=== PATIENT | female | born 1945 | race Caucasian/White ===

== ENCOUNTER 2018-07-28 23:03 | Emergency (ER) | payer OTHER, MEDICARE ==
--- OUTSIDE RECORDS SUMMARY | 2018-07-28 23:06 | XMS REPORT | Continuity of Care Document ---
:1945 Author Organization Interface Problems Problem Status Onset Classification Date Comments Source Date Reported 9AM RESEARCH Active 08/13/20 PT/K44.9 16 [facility] K44.9/DIAPHRAGMAT Active 08/07/20 IC HERNIA WITHOUT 16 [facility] OBSTR GERD Active 07/10/20 14 [facility] 530.81/553.3/787. Active 12/07/19 20/18504 14 [facility] UNK Active 10/10/19 14 [facility] TYPE AND CROSS Active 09/10/19 14 [facility] Abdominal pain Active Problem 08/21/2016 [facility] Altered bowel Active Problem 08/21/2016 habits [facility] Anemia Active Problem 08/21/2016 [facility] Cholecystitis Resolved Problem 08/21/2016 [facility] Decrease in Active Problem 08/21/2016 appetite [facility] Diverticulosis of Active Problem 08/21/2016 colon [facility] Dysphagia Active Problem 08/21/2016 [facility] GERD - Active Problem 08/21/2016 Gastro-esophageal [facility] reflux disease Hiatal hernia Active Problem 08/21/2016 [facility] Hip joint pain Resolved Problem 08/21/2016 [facility] HTN - Resolved Problem 08/21/2016 Hypertension [facility] Multiple gastric Active Problem 08/21/2016 [place] erosions<sup>1</s erosions [facility] up> 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 [facility] Polyp of colon Resolved Problem 08/21/2016 [facility] RA - Rheumatoid Active Problem 08/21/2016 arthritis [facility] [place] Active Problem 07/20/2014 ulcerations [facility] small bowel AVM's Active Problem 07/20/2014 [facility] ESOPHAGEAL REFLUX Active [facility] CHR BLOOD LOSS Active ANEMIA [facility] DYSPHAGIA NOS Active [facility] Medications Medication Details Route Status Patient Ordering Order Source Instructions Provider Date Levofloxacin 500 mg, 100 mL, Inactive Route: IVPB, 2013 [facility] Drug form: INJ, Daily, Dosing Weight 67.273, kg, Start date: 12/12/13 11:00:00, Duration: 30 day, Stop date: 01/10/14 11:00:00Notes: (Same as:Levaquin) Paxil 10 mg, 1 tab, Inactive Route: PO, Drug 2013 [facility] form: TAB, Daily, Dosing Weight 76.364, kg, Start date: 12/12/13 9:00:00, Duration: 30 day, Stop date: 01/10/14 9:00:00Notes: (Same as: Paxil) Lisinopril 10 mg, 1 tab, Inactive Route: PO, Drug 2013 [facility] form: TAB, Daily, Dosing Weight 76.364, kg, Start date: 12/12/13 9:00:00, Duration: 30 day, Stop date: 01/10/14 9:00:00Notes: (Same as: Prinivil, Zestril) Tylenol 650 mg, 20.3 Inactive mL, Route: PO, 2013 [facility] Drug form: LIQ, Q6H, Dosing Weight 76.364, kg, PRN Pain, Start date: 12/12/13 6:16:00, Stop date: 01/11/14 6:15:00Notes: Max acetaminophen=4 000mg/day (4 gm/day). (Same as: Tylenol) chlorhexidine 15 ml, Route: No Longer gluconate 1.2 S&SPIT, Q12H, Active 2013 [facility] MG/ML Mouth[place] Drug form: LIQ, Start date: 12/11/13 21:00:00, Duration: 2 week, Stop date: 12/25/13 9:00:00Notes: (Same As: Peridex) heparin, 5,000 unit, 1 No Longer porcine mL, Route: Active 2013 [facility] SUB-Q, Drug form: INJ, Q12H, Dosing Weight 67.273, kg, Start date: 12/11/13 20:00:00, Duration: 30 day, Stop date: 01/10/14 9:00:00Notes: porcine heparin Dilaudid 0.5 mg, Route: Inactive IVP, ONCE, 2013 [facility] Dosing Weight 76.364, kg, Start date: 12/11/13 18:57:00, Stop date: 12/11/13 18:57:00 Plaquenil 200 mg, 1 tab, No Longer Route: PO, Drug Active 2013 [facility] form: TAB, BID, Dosing Weight 76.364, kg, Start date: 12/11/13 17:00:00, Duration: 30 day, Stop date: 01/10/14 9:00:00Notes: (Same as: Plaquenil) Carafate 1 gm, 10 mL, No Longer Route: PO, Drug Active 2013 [facility] form: SUSP, QID-Before Meals, Dosing Weight 76.364, kg, Start date: 12/11/13 16:30:00, Stop date: 01/10/14 11:30:00Notes: Enteral feeds may interfere with the absorption of this medication. Shake well. Take 1 hr before or 2 hrs after antacids, dairy pdt, minerals & meals. (Same As: Carafate) Protonix 40 mg, 1 pkt, No Longer Route: PO, Drug Active 2013 [facility] form: GRAN/REC, Before Dinner, Dosing Weight 76.364, kg, Start date: 12/11/13 16:30:00, Stop date: 01/09/14 16:30:00Notes: Same as: Protonix Mix in 5 mL apple juice or applesauce for oral & 10mL apple juice for NG tube Zofran 4 mg, 2 mL, No Longer Route: IV, Drug Active 2013 [facility] form: INJ, Q6H, Dosing Weight 76.364, kg, PRN Nausea, Start date: 12/11/13 16:26:00, Duration: 30 day, Stop date: 01/10/14 16:25:00Notes: (Same as: Zofran) atropine 0.5 mg, 5 mL, No Longer Route: IVP, Active 2013 [facility] Drug form: INJ, PRN, PRN Bradycardia, Start date: 12/11/13 15:50:00, Duration: 30 day, Stop date: 01/10/14 15:49:00 Albuterol 0.83 2.49 mg, 3 mL, No Longer MG/ML Inhalant Route: NEB, 2013 [facility] Solution Drug form: SOLN, RQ4H, Dosing Weight 67.273, kg, Start date: 12/11/13 15:00:00, Duration: 30 day, Stop date: 01/10/14 11:00:00Notes: SEE RT DOCUMENTATION (Same as: Proventil) Dilaudid 0.5 mg, Route: Inactive IVP, ONCE, 2013 [facility] Dosing Weight 76.364, kg, Start date: 12/11/13 14:12:00, Stop date: 12/11/13 14:12:00 Dilaudid 0.5 mg, Route: Inactive IVP, ONCE, 2013 [facility] Dosing Weight 76.364, kg, Start date: 12/11/13 14:06:00, Stop date: 12/11/13 14:06:00 Docusate 100 mg, 1 cap, No Longer Route: PO, Drug Active 2013 [facility] form: CAP, BID, Dosing Weight 67.273, kg, PRN Constipation, Start date: 12/11/13 13:36:00, Duration: 30 day, Stop date: 01/10/14 13:35:00Notes: (Same as: Colace) (Do Not Crush) Nitroglycerin 0.4 mg, 1 tab, No Longer Route: SL, Drug Active 2013 [facility] form: TAB, Q5Min, Dosing Weight 67.273, kg, PRN Chest Pain, Start date: 12/11/13 13:36:00, Duration: 30 day, Stop date: 01/10/14 13:35:00Notes: (Same as:Nitroquick, Nitrostat) "Do Not Crush" Sublingual tablet Sodium Chloride 1,000 mL, Rate: No Longer 0.154 MEQ/ML 75 ml/hr, 2013 [facility] Injectable Infuse over: Solution 13.3 hr, Route: IV, Dosing Weight 67.273 kg, Total Volume: 1,000, Start date: 12/11/13 13:36:00, Duration: 30 day, Stop date: 01/10/14 13:35:00 Morphine 4 mg, 2 mL, No Longer Route: IVP, Active 2013 [facility] Drug form: INJ, Q4H, Dosing Weight 67.273, kg, PRN Pain Score 1-5, Start date: 12/11/13 13:36:00, Duration: 30 day, Stop date: 01/10/14 13:35:00Notes: (Same as:MORPhine Sulfate) heparin, 5,000 unit, Inactive porcine Route: SUB-Q, 2013 ONCE, Dosing Weight 67.273, kg, Start date: 12/11/13 9:40:00, Stop date: 12/11/13 9:40:00 Levaquin 500 mg, 100 mL, Inactive Route: IVPB, 2013 Drug form: INJ, ONCE, Dosing Weight 67.273, kg, Start date: 12/11/13 9:40:00, Stop date: 12/11/13 9:40:00Notes: (Same as:Levaquin) Calcium 1,000 mL, Rate: Inactive Chloride 0.0014 25 ml/hr, 2013 MEQ/ML / Infuse over: 40 Potassium hr, Route: IV, Chloride 0.004 Dosing Weight MEQ/ML / Sodium 67.273 kg, Chloride 0.103 Total Volume: MEQ/ML / Sodium 1,000, Start Lactate 0.028 date: 12/11/13 MEQ/ML 9:23:00, Injectable Duration: 30 Solution day, Stop date: 01/10/14 9:22:00 Ibuprofen PO, PRN, 0 No Longer Refill(s) Active 2013 Ascorbic Acid / 1 tab, PO, Active Biotin / Folic Daily, 0 2013 Acid / Niacin / Refill(s) pantothenate / pyridoxine / Riboflavin / Thiamine / Vitamin B 12 pantoprazole 40 40 mg=1 tab, Active MG Enteric PO, Daily, # 30 2013 Coated Tablet tab, 0 [Protonix] Refill(s) Sucralfate 1000 1 gm=1 tab, PO, Active MG Oral Tablet QID-Before 2013 [Carafate] Meals, # 120 tab, 0 Refill(s) Allergies, Adverse Reactions, Alerts Substance Category Reaction Severity Reaction Status Date Comments Source type Reported codeine Assertion Allergy to Drug Active sulfonamides allergy [facility] (disorder) sulfa Assertion Drug Active drugs allergy [facility] Immunizations Immunization Date Given Site Status Last Updated Comments Source Results Order Name Results Value Reference Date Interpretation Comments Source Range Barium Barium Addendum: Most recent hernia repair, July 2015. 08/18 - Swallow w Swallow w - [facility] Esophagus Esophagus Barium Swallow w Esophagus Function DX Function Function DX DX Read by: Jesus Zavala MD Dictated Date/time: 08/18/16 16:46 CLINICAL HISTORY: K44.9 Diaphragmatic hernia without obstruction or gangrene. Status post hernia repair, December 2013 Electronically Signed by : Jesus Zavala MD 08/18/16 16:47 FINAL REPORT - - 0.8 minutes fluoro time. Read by: Jesus Zavala MD Dictated Date/time: 08/18/16 16:35 COMPARISON: 07/18/2014 Electronically Signed by: Jesus Zavala MD 08/18/16 16:40 FINAL REPORT TECHNIQUE: Thin barium was administered with the patient in the upright position. AP and oblique views of the esophagus, GE junction and stomach were subsequently performed. FINDINGS: There is no evidence for residual or recurrent hiatal hernia. There is mild narrowing at the GE junction consistent with patient's history of fundoplication. There is no significant delay in passage of the administered barium from the esophagus to the stomach. No extraluminal leakage of contrast is visualized. IMPRESSION: Negative study. No fluoroscopic evidence to suggest residual/recurrent hernia. No significant delay in clearance of barium from the esophagus to the stomach. [id number] Barium Barium Barium Swallow/Video esophagram: 07/18 - Swallow w Swallow - [facility] Esophagus Esophagus Function Function DX DX CLINICAL HX: Status post repair of large paraesophageal hernia December 2013 Read by: Jesus Zavala MD Dictated Date/time: 07/18/14 11:17 Electronically Signed by: Jesus Zavala MD 07/18/14 11:26 FINAL REPORT TECHNIQUE: Thin barium was utilized for prone and LPO images. Thick barium was utilized for upright imaging of the esophagus and pharynx. Hamburger meat with barium paste was given to evaluate motility with solids. FINDINGS: There is no delay in passage of bolus from the pharynx into the esophagus. The cricopharyngeus relaxes normally. There is no evidence for a Zenker's diverticulum or pharyngeal web. Prone and LPO images of the esophagus reveal no significant dysmotility. Small paraesophageal hernia is noted posteriorly at the GE junction approximately 2 cm in size. Upright images with thick barium reveal no significant dysmotility. No mass lesions, stricture, or any significant mucosal abnormality of the esophagus is noted. Subsequently 2 separate swallows of a small piece of hamburger meat and barium were fluoroscopically followed through the length of esophagus. There is mild delay in clearance of solids from the esophag us. The patient is able to clear the residual solids from the esophagus following ingestion of additional water/thin barium Overhead image performed at the conclusion the procedure reveals the administered barium to remain in the stomach. Stomach is noted to be mildly distended. IMPRESSION: Small paraesophageal hernia is noted posteriorly at the GE junction. No significant dysmotility with regard to liquids. Minimal to mild delay in clearance of solids from the esophagus. Mild distention of stomach with no passage of the administered barium from the stomach into the proximal small bowel on the overhead image performed at the conclusion of the procedure. Correlate clinica lly for signs of gastroparesis. Further evaluation may be obtained with gastric emptying study as clinically indicated. Fluoroscopy Time: 3.1 minutes SL:13 CHEM PANEL eGFR 65 12/12 1Result Comment: The eGFR is calculated using the CKD-EPI formula. In most young, healthy individuals the eGFR will be >90 mL/ min/1.73m2. The eGFR declines with age. An eGFR of 60-89 may be normal in mL/min/1.7 /2013 some populations, particularly the elderly, for whom the CKD-EPI formula has not been extensively validated. Use of the eGFR is not recommended in the following populations: [facility] 3m2 Individuals with unstable creatinine concentrations, including patients and those with serious co-morbid conditions. Patients with extremes in muscle mass or diet. The data above are obtained from the National Kidney Disease Education Program (NKDEP) which additionally recommends that when the eGFR is used in patients with extremes of body mass index for purposes of drug dosing, the eGFR should be multiplied by the estimated BMI. CHEM PANEL Globulin 2.5 g/dL 2.0 - 4.0 12/12 [facility] CHEM PANEL A/G Ratio 1.1 0.7 - 1.6 12/12 [facility] CHEM PANEL AST 227 unit/L 0 - 37 12/12 [facility] CHEM PANEL B/C Ratio 16 6 - 25 12/12 [facility] CHEM PANEL AGAP 10.3 meq/L 10.0 - 12/12 20.0 [facility] CHEM PANEL Albumin Lvl 2.8 g/dL 3.5 - 5.0 12/12 [facility] CHEM PANEL Chloride Lvl 110 meq/L 95 - 109 12/12 [facility] CHEM PANEL Glucose Lvl 112 mg/dL 70 - 99 12/12 4Interpretive Data: Adult reference range values reflect the clinical guidelines of the [place] [employer]. [facility] CHEM PANEL Alk Phos 46 unit/L 39 - 136 12/12 [facility] CHEM PANEL Creatinine 0.9 mg/dL 0.5 - 1.4 12/12 [facility] CHEM PANEL BUN 14 mg/dL 7 - 22 12/12 [facility] CHEM PANEL Total 5.3 g/dL 6.4 - 8.4 12/12 [facility] CHEM PANEL Potassium 4.3 meq/L 3.5 - 5.1 12/12 [facility] CHEM PANEL Sodium Lvl 141 meq/L 135 - 145 12/12 [facility] CHEM PANEL Calcium Lvl 7.5 mg/dL 8.5 - 10.5 12/12 [facility] CHEM PANEL CO2 25 meq/L 24 - 32 12/12 [facility] CHEM PANEL Bili Total 0.3 mg/dL 0.2 - 1.3 12/12 [facility] CHEM PANEL ALT 220 unit/L 0 - 65 12/12 [facility] HEMATOLOGY Anisocyte 1+ None Seen 12/12 [facility] *ABN* (12/12/13 4:00 AM) HEMATOLOGY Basophils # 0.0 K/CMM 0.0 - 0.2 12/12 [facility] HEMATOLOGY Segs-Bands # 10.6 K/CMM 1.5 - 8.1 12/12 [facility] HEMATOLOGY Basophils 0.2 % 0.0 - 1.0 12/12 [facility] HEMATOLOGY Lymphocytes 2.3 K/CMM 1.0 - 5.5 12/12 [facility] HEMATOLOGY Eosinophils 0.0 K/CMM 0.0 - 0.5 12/12 [facility] HEMATOLOGY Monocytes # 0.8 K/CMM 0.0 - 0.8 12/12 [facility] HEMATOLOGY Segs 77.0 % 45.0 - 12/12 75.0 [facility] HEMATOLOGY Monocytes 6.1 % 2.0 - 12.0 12/12 [facility] HEMATOLOGY Lymphocytes 16.7 % 20.0 - 12/12 40.0 /2013 [facility] HEMATOLOGY Eosinophils 0.0 % 0.0 - 4.0 12/12 [facility] Platelet 230 K/CMM 133 - 450 12/12 [facility] MPV 9.5 fL 7.4 - 10.4 12/12 [facility] MCV 81.9 fL 81.0 - 12/12 99.0 /2013 [facility] MCH 27.3 pg 27.0 - 12/12 31.0 /2013 [facility] MCHC 33.4 g/dL 32.0 - 12/12 36.0 /2013 [facility] RDW 23.0 % 11.5 - 12/12 14.5 /2013 [facility] WBC 13.8 K/CMM 3.7 - 10.4 12/12 [facility] RBC 3.63 M/CMM 4.20 - 12/12 5.40 /2013 [facility] Hgb 9.9 g/dL 12.0 - 12/12 16.0 [facility] Hct 29.7 % 36.0 - 12/12 48.0 /2013 [facility] Esophagus Esophagus Ba Video esophagram: 12/12 - Ba Swallow Swallow - [facility] with Esophagus Esophagus Func Fun CLINICAL HISTORY: Status post hernia repair, evaluate for leaks/ perforation Read by: Jesus Zavala Dictated Date/time: 12/12/13 09:43 Electronically Signed by: Jesus Zavala MD 12/12/13 09:55 FINAL REPORT COMPARISON: 12/08/2013 TECHNIQUE: Fluoroscopic and video images of the esophagus were performed following administration of single contrast barium with the patient in the upright position. FINDINGS: The patient tolerated single contrast barium without difficulty. There is no significant delay in passage of the bolus from the esophagus into the stomach. The stomach is noted to be infradiap hragmatic consistent with recent hernia repair. There is no leakage of contrast outside the lumen of the esophagus or proximal stomach to suggest perforation. There is mild distention of the stomach with air-fluid level noted on the upright study. IMPRESSION: Negative postop Video esophagram. Interval resolution of type III hernia. No fluoroscopic evidence for leaks or obstruction. Fluoroscopy Time: 0.6 minutes SL:13 Chest Chest 1view Chest one view. 12/12 - /2013 - [facility] COMPARISON: 12/11/2013. Read by: Jesus Zavala Dictated Date/time: 12/12/13 07:29 Electronically Signed by: Jesus Zavala MD 12/12/13 07:31 FINAL REPORT FINDINGS: Limited AP portable study. Bibasilar atelectasis has mildly decreased in the interim. There is persistent mild scarring at the lung bases. There is blunting of the left costophrenic sulcus, likely secondary to small amount of pleural fluid. Cardiac silhouette size is within normal limits. No significant bony abnormality is evident. Various EKG leads and wires project over the patient's chest. SL:13 BLOOD BANK ABO/Rh O POS 12/11 RESULTS /2013 [facility] BLOOD BANK Antibody Negative 12/11 RESULTS Scrn [facility] (12/11/13 2:07 PM) CHEM PANEL eGFR 75 12/11 2Result Comment: The eGFR is calculated using the CKD-EPI formula. In most young, healthy individuals the eGFR will be >90 mL/ min/1.73m2. The eGFR declines with age. An eGFR of 60-89 may be normal in mL/min/1. some populations, particularly the elderly, for whom the CKD-EPI formula has not been extensively validated. Use of the eGFR is not recommended in the following populations: [facility] 3m2 Individuals with unstable creatinine concentrations, including patients and those with serious co-morbid conditions. Patients with extremes in muscle mass or diet. The data above are obtained from the National Kidney Disease Education Program (NKDEP) which additionally recommends that when the eGFR is used in patients with extremes of body mass index for purposes of drug dosing, the eGFR should be multiplied by the estimated BMI. CHEM PANEL Chloride Lvl 110 meq/L 95 - 109 12/11 [facility] CHEM PANEL Potassium 4.0 meq/L 3.5 - 5.1 12/11 Lvl [facility] CHEM PANEL Sodium Lvl 139 meq/L 135 - 145 12/11 [facility] CHEM PANEL Bili Total 0.2 mg/dL 0.2 - 1.3 12/11 [facility] CHEM PANEL Calcium Lvl 7.5 mg/dL 8.5 - 10.5 12/11 [facility] CHEM PANEL CO2 20 meq/L 24 - 32 12/11 [facility] CHEM PANEL AST 130 unit/L 0 - 37 12/11 [facility] CHEM PANEL Total 5.4 g/dL 6.4 - 8.4 12/11 [facility] CHEM PANEL Albumin Lvl 2.8 g/dL 3.5 - 5.0 12/11 [facility] CHEM PANEL ALT 117 unit/L 0 - 65 12/11 [facility] CHEM PANEL BUN 15 mg/dL 7 - 22 12/11 [facility] CHEM PANEL Alk Phos 50 unit/L 39 - 136 12/11 [facility] CHEM PANEL Creatinine 0.8 mg/dL 0.5 - 1.4 12/11 Lvl [facility] CHEM PANEL Glucose Lvl 178 mg/dL 70 - 99 12/11 5Interpretive Data: Adult reference range values reflect the clinical guidelines of the [place] [employer]. [facility] CHEM PANEL Globulin 2.6 g/dL 2.0 - 4.0 12/11 [facility] CHEM PANEL A/G Ratio 1.1 0.7 - 1.6 12/11 [facility] CHEM PANEL B/C Ratio 19 6 - 25 12/11 [facility] CHEM PANEL AGAP 13.0 meq/L 10.0 - 12/11 20.0 [facility] HEMATOLOGY Hct 30.7 % 36.0 - 12/11 48.0 [facility] HEMATOLOGY Hgb 10.0 g/dL 12.0 - 12/11 16.0 [facility] BLOOD BANK RBC product Product available 12/11 [facility] (12/11/13 1:43 PM) Chest Chest 1view Examination: Chest x-ray, single view 12/11 - - [facility] History: Shallow breathing Read by: Joseph Billingsley Dictated Date/time: 12/11/13 14:48 Electronically Signed by: Joseph Billingsley MD 12/11/13 14:50 FINAL REPORT Comparison: 12/08/2013 Findings: The cardiac silhouette is normal in size. Mild bibasilar scarring versus linear atelectasis is seen. There is no pleural effusion or pneumothorax. The osseous structures are without focal abnormality. IMPRESSION: No acute cardiopulmonary disease. SL: 12 BLOOD BANK RBC product Product available 12/11 [facility] (12/11/13 6:00 AM) BLOOD BANK Antibody Negative 12/08 RESULTS Scrn /2013 [facility] (12/08/13 11:00 AM) BLOOD BANK ABO/Rh O POS 12/08 RESULTS [facility] CHEM PANEL eGFR 65 12/08 3Result Comment: The eGFR is calculated using the CKD-EPI formula. In most young, healthy individuals the eGFR will be >90 mL/ min/1.73m2. The eGFR declines with age. An eGFR of 60-89 may be normal in mL/min/1. some populations, particularly the elderly, for whom the CKD-EPI formula has not been extensively validated. Use of the eGFR is not recommended in the following populations: [facility] 3m2 Individuals with unstable creatinine concentrations, including patients and those with serious co-morbid conditions. Patients with extremes in muscle mass or diet. The data above are obtained from the National Kidney Disease Education Program (NKDEP) which additionally recommends that when the eGFR is used in patients with extremes of body mass index for purposes of drug dosing, the eGFR should be multiplied by the estimated BMI. CHEM PANEL Total 6.8 g/dL 6.4 - 8.4 12/08 [facility] CHEM PANEL Bili Total 0.5 mg/dL 0.2 - 1.3 12/08 [facility] CHEM PANEL AST 19 unit/L 0 - 37 12/08 [facility] CHEM PANEL Chloride Lvl 104 meq/L 95 - 109 12/08 [facility] CHEM PANEL CO2 26 meq/L 24 - 32 12/08 [facility] CHEM PANEL Calcium Lvl 8.5 mg/dL 8.5 - 10.5 12/08 [facility] CHEM PANEL Alk Phos 64 unit/L 39 - 136 12/08 [facility] CHEM PANEL Glucose Lvl 85 mg/dL 70 - 99 12/08 6Interpretive Data: Adult reference range values reflect the clinical guidelines of the [place] [employer]. [facility] CHEM PANEL BUN 21 mg/dL 7 - 22 12/08 [facility] CHEM PANEL Albumin Lvl 3.8 g/dL 3.5 - 5.0 12/08 [facility] CHEM PANEL ALT 22 unit/L 0 - 65 12/08 [facility] CHEM PANEL Sodium Lvl 136 meq/L 135 - 145 12/08 [facility] CHEM PANEL Creatinine 0.9 mg/dL 0.5 - 1.4 12/08 Lvl [facility] CHEM PANEL Potassium 4.1 meq/L 3.5 - 5.1 12/08 Lv [facility] CHEM PANEL AGAP 10.1 meq/L 10.0 - 12/08 20.0 [facility] CHEM PANEL Globulin 3.0 g/dL 2.0 - 4.0 12/08 [facility] CHEM PANEL B/C Ratio 23 6 - 25 12/08 [facility] CHEM PANEL A/G Ratio 1.3 0.7 - 1.6 12/08 [facility] HEMATOLOGY MCH 26.6 pg 27.0 - 12/08 31.0 [facility] HEMATOLOGY Hgb 11.9 g/dL 12.0 - 12/08 16.0 [facility] Hct 36.6 % 36.0 - 12/08 48.0 [facility] MCV 82.2 fL 81.0 - 12/08 99.0 /2013 [facility] Platelet 260 K/CMM 133 - 450 12/08 [facility] HEMATOLOGY RDW 23.4 % 11.5 - 12/08 14.5 [facility] MPV 9.9 fL 7.4 - 10.4 12/08 [facility] MCHC 32.4 g/dL 32.0 - 12/08 36.0 /2013 [facility] RBC 4.45 M/CMM 4.20 - 12/08 5.40 /2013 [facility] WBC 9.5 K/CMM 3.7 - 10.4 12/08 [facility] HEMATOLOGY INR 0.92 0.85 - 12/08 7Interpretive Data: RECOMMENDED RANGES FOR PROTIME INR: 1. 2.0-3.0 for most medical and surgical thromboembolic states. [facility] 2.5-3.5 for artificial heart valves and recurrent embolism. INR SHOULD BE USED ONLY FOR PATIENTS ON STABLE ANTICOAGULANT THERAPY. HEMATOLOGY PTT 24.5 s 22.9 - 12/08 8Interpretive 35.8 Data: Heparin [facility] Therapeutic Range: 57 - 92 Seconds HEMATOLOGY PT 12.3 s 12.0 - 12/08 14.7 [facility] HEMATOLOGY Basophils 0.5 % 0.0 - 1.0 12/08 [facility] HEMATOLOGY Eosinophils 0.8 % 0.0 - 4.0 12/08 [facility] HEMATOLOGY Monocytes 4.9 % 2.0 - 12.0 12/08 [facility] HEMATOLOGY Segs-Bands # 5.0 K/CMM 1.5 - 8.1 12/08 [facility] HEMATOLOGY Lymphocytes 3.9 K/CMM 1.0 - 5.5 12/08 # /2013 [facility] HEMATOLOGY Basophils # 0.0 K/CMM 0.0 - 0.2 12/08 [facility] HEMATOLOGY Eosinophils 0.1 K/CMM 0.0 - 0.5 12/08 # [facility] HEMATOLOGY Monocytes # 0.5 K/CMM 0.0 - 0.8 12/08 [facility] HEMATOLOGY Anisocyte 1+ None Seen 12/08 [facility] *ABN* (12/08/13 11:00 AM) HEMATOLOGY Lymphocytes 41.1 % 20.0 - 12/08 40.0 /2013 [facility] HEMATOLOGY Segs 52.7 % 45.0 - 12/08 75.0 [facility] URINE AND UA Sq Epi None Seen 12/08 STOOL [facility] URINE AND UA <=1.0 0.1 - 1.0 12/08 STOOL Urobilinogen mg/dL /2013 [facility] URINE AND UA WBC 5 /HPF 0 - 5 12/08 [facility] URINE AND UA Leuk Est Trace Negative 12/08 [facility] *ABN* (12/08/13 10:30 AM) URINE AND UA Bacteria Occasional None Seen 12/08 [facility] RBC null 0 - 2 12/08 [facility] URINE [facility]A Glucose Negative Negative 12/08 [facility] mg/dL mg/dL [facility] URINE AND UA Ketones Negative Negative 12/08 [facility] mg/dL mg/dL [facility] URINE AND UA Blood Negative Negative 12/08 [facility] (12/08/13 10:30 AM) URINE AND UA Nitrite Positive Negative 12/08 [facility] *ABN* (12/08/13 10:30 AM) URINE AND UA Bili Negative Negative 12/08 [facility] *NA* (12/08/13 10:30 AM) URINE AND UA Spec Grav 1.013 <=1.030 12/08 [facility] URINE AND UA Turbidity Slight Clear 12/08 [facility] /2014 [facility] *ABN* (12/08/13 10:30 AM) URINE AND UA Color Yellow Yellow 12/08 *NA* (12/08/13 10:30 AM) URINE AND UA pH 5.0 5.0 - 8.0 12/08 [facility] URINE AND UA Protein Negative Negative 12/08 [facility] mg/dL mg/dL Esophagus Esophagus Ba HISTORY: Hiatal hernia, dysphasia. 12/08 - Ba Swallow Swallow - with Esophagus Esophagus Func Func Read by: Anuj Chin Dictated Date/time: 12/08/13 12:58 Electronically Signed by: Anuj Chin MD 12/08/13 13:05 FINAL REPORT Barium Swallow/Video esophagram: Technique: Prone and supine JAPANESE imaging was initially performed with single -contrast barium. Fluoroscopic spot and video images were obtained. Upright air- contrast study was performed followed by additi onal images of the pharyngoesophageal junction. Hamburger meat with barium was given to evaluate motility with solids. FINDINGS: There is no delay in passage of bolus from the pharynx into the esophagus. The cricopharyngeus relaxes normally. There is no evidence for a Zenker's diverticulum. Prone and JAPANESE images of the esophagus demonstrate a large paraesophageal hiatal hernia which includes the gastric fundus. It is notably to the right of the gastroesophageal junction and distal esophagus. Upright double-contrast images reveal no significant dysmotility. No mass lesions, stricture, or any significant mucosal abnormality of the esophagus is otherwise noted. Subsequently 2 separate swallows of a small piece of hamburger meat and barium were fluoroscopically followed through the length of esophagus. There is no significant delay in passage of the solid bariu m bolus from the pharynx to the esophagus and subsequently into the stomach. Delayed image through the upper abdomen reveals prompt passage of barium from the stomach to the proximal small bowel. IMPRESSION: Large paraesophageal hiatal hernia. Fluoroscopy Time: Three minutes. SL:13 Chest 2 Chest 2 PA and lateral: There is a right retrocardiac hiatal hernia previously demonstrated on the esophagram of 10/20/2013. The cardiomediastinal silhouette, pulmonary vasculature and katiana are otherwise within 12/08 views views normal limits. There is mild atelectasis or consolidation in the anterior basilar segment of the right lower lobe. The lungs and pleural spaces are otherwise clear. There are no significant osseous abnormalities. 2013 [facility] Read by: Cricket Schmitz IMPRESSION: Dictated Date/time: 12/08/13 11:41 Electronically Signed by: Cricket Schmitz MD 12/08/13 11:44 FINAL REPORT Atelectasis or consolidation in the anterior basilar segment of the right lower lobe. There are no other acute radiographic abnormalities in the chest. SL:13 Vital Signs Vital Sign Value Date Comments Source Systolic (mm Hg) 136 12/12/2013 [facility] Diastolic (mm Hg) 77 12/12/2013 [facility] Heart Rate 86 12/12/2013 [facility] Respitory Rate 18 12/12/2013 [facility] Temperature Oral (F) 98.1 F 12/12/2013 [facility] Temperature Oral (F) 98.1 F 12/12/2013 [facility] Respitory Rate 18 12/12/2013 [facility] Heart Rate 77 12/12/2013 [facility] Systolic (mm Hg) 117 12/12/2013 [facility] Diastolic (mm Hg) 72 12/12/2013 [facility] Respitory Rate 23 12/12/2013 [facility] Heart Rate 94 12/12/2013 [facility] Temperature Oral (F) 99.0 F 12/12/2013 [facility] Diastolic (mm Hg) 71 12/12/2013 [facility] Systolic (mm Hg) 115 12/12/2013 [facility] BMI Calculated 29.82 12/11/2013 [facility] Height 160.02 cm 12/11/2013 [facility] Weight 76.364 12/11/2013 [facility] Weight 67.273 12/08/2013 [facility] BMI Calculated 27.13 12/08/2013 [facility] Height 157.48 cm 12/08/2013 [facility] Encounters Location Location Encounter Encounter Reason Attending ADM DC Status Source Details Type Number For Provider Date Date Visit [place] [id number] TYPE KUSHAL 10/10 Active [facility] AND INA [facility] Outpatient [id number] _MAPID: Gina 12/08 12/09 [facility] [id number] ENCNTR[facility] /2013 [facility] [id number] [facility] [address] [place] [address] Inpatient [id number] Jj Partida 12/11 12/[address] [facility] Outpatient [id number] [facility] 07/18 07/19 Jin Escobar /2013 [facility] Outpatient [id number] [facility] 08/18 08/19 Jin Escobar /2015 [facility] [id number] TRINITYK KUSHAL Active [facility] Procedures Procedure Code Date Perfomer Comments Source Hip [id number] Right [facility] replacement<sup>1</markham 4 p> Laparoscopic [id number] [facility] cholecystectomy 3 Bilateral tubal [id number] [facility] ligation Colonoscopy<sup>2</[place] 85167165 04/2006 [facility] p> 03/2003 Esophagogastroduodeno [id number] 04/2006 [facility] scopy<sup>3</sup> 10/2006 Ultrasound scan of [id number] [facility] gallbladder Wrist reconstruction [id number] [facility]
--- OUTSIDE RECORDS SUMMARY | 2018-07-28 23:06 | XMS REPORT | Summary of Care ---
:1945 Author Encounter Dates Location Diagnoses Discharge Disposition Providers 12/08/2013 - [facility] 12/08/[id number] Reason for Visit DYSPHAGIA/HIATIAL HERNIA/GERD Problem List Condition Effective Dates Status Health Status Informant Abdominal pain(Confirmed) Active Altered bowel habits(Confirmed) Active Anemia(Confirmed) Active Anselmo ulcerations(Confirmed) Active Cholecystitis(Confirmed) Resolved Decrease in appetite(Confirmed) Active Diverticulosis of colon(Confirmed) Active Dysphagia(Confirmed) Active GERD - Gastro-esophageal reflux Active disease(Confirmed) Hiatal hernia(Confirmed) Active Hip joint pain(Confirmed) Resolved HTN - Hypertension(Confirmed) Resolved Multiple gastric Active erosions(Confirmed)1 Multiple gastric ulcers(Confirmed) Active Polyp of colon(Confirmed) Resolved RA - Rheumatoid arthritis(Confirmed) Active small bowel AVM's(Confirmed) Active 1Cameron erosions Allergies, Adverse Reactions, Alerts Substance Reaction Severity Status codeine Allergy to sulfa drugs Active sulfa drugs Active Medications No data available for this section Medications Administered During Your Visit No data available for this section Immunizations No data available for this section Social History Social History Type Response Substance Abuse 1 Alcohol 2 Smoking Status Use: Current every day smoker. Type: Cigarettes. 4 per day. Tobacco smoke exposure: Lives with someone who smokes. Did the Patient Smoke Cigarettes Anytime During the Last 365 Days? Yes. Cessation Counseling Provided? No. [id number]
--- OUTSIDE RECORDS SUMMARY | 2018-07-28 23:07 | XMS REPORT | Summary of Care ---
:1945 Author Organization [facility] Address [address] [place], [place] [address]- Encounter [facility] Radhantr_regan(FIN) [id number] Date(s): 08/18/16 - 08/18/16 [facility] [address] [place] [address]- Discharge Disposition: Home or Self Care Attending Physician: Gina Escobar MD Vital Signs No data available for this section Problem List Condition Effective Dates Status Health Status Informant Abdominal pain(Confirmed) Active Altered bowel habits(Confirmed) Active Anemia(Confirmed) Active Cholecystitis(Confirmed) Resolved Decrease in appetite(Confirmed) Active Diverticulosis of colon(Confirmed) Active Dysphagia(Confirmed) Active GERD - Gastro-esophageal reflux Active disease(Confirmed) Hiatal hernia(Confirmed) Active Hip joint pain(Confirmed) Resolved HTN - Hypertension(Confirmed) Resolved Multiple gastric Active erosions(Confirmed)1 Multiple gastric ulcers(Confirmed) Active Polyp of colon(Confirmed) Resolved RA - Rheumatoid arthritis(Confirmed) Active 1Cameron erosions Allergies, Adverse Reactions, Alerts Substance Reaction Severity Status codeine Allergy to sulfa drugs Active sulfa drugs Active Medications No data available for this section Results No data available for this section Immunizations No data available for this section Procedures Procedure Date Related Diagnosis Body Site Hip replacement1 2003 Laparoscopic cholecystectomy 04/09/03 Bilateral tubal ligation Colonoscopy2 Esophagogastroduodenoscopy3 Ultrasound scan of gallbladder Wrist reconstruction [id number] Social History Social History Type Response Substance Abuse 1 Alcohol 2 Smoking Status Current every day smoker; Type: Cigarettes; Tobacco use per day : 4; Lives with someone who smokes; Cigarette Smoking Last 365 Days Yes; Reg Smoking Cessation Counseling No [id number] Assessment and Plan No data available for this section
--- OUTSIDE RECORDS SUMMARY | 2018-07-28 23:07 | XMS REPORT | Summary of Care ---
:1945 Author Encounter HQ Lorrie_regan(LUI) [id number] Date(s): 12/11/13 - 12/12/13 [facility] [address] Discharge Disposition: Home Physician Attending: Jj Partida Physician Admitting: Jj Partida Physician_Referring: Gina Escobar Reason for Visit 530.81/553.3/787.20/13459 Vital Signs Most recent to oldest [Reference 1 2 3 Range]: Height 160.02 cm 157.48 cm (12/11/13 3:33 PM) (12/08/13 9:50 AM) Temperature Oral [96.4-99.1 DegF] 98.1 DegF 98.1 DegF 99.0 DegF (12/12/13 12:01 PM) (12/12/13 7:41 AM) (12/12/13 4:00 AM) Systolic Blood Pressure [90-140 136 mmHg 117 mmHg 115 mmHg mmHg] (12/12/13 12:01 PM) (12/12/13 7:41 AM) (12/12/13 4:00 AM) Diastolic Blood Pressure [60-90 77 mmHg 72 mmHg 71 mmHg mmHg] (12/12/13 12:01 PM) (12/12/13 7:41 AM) (12/12/13 4:00 AM) Respiratory Rate [14-20 BRMIN] 18 BRMIN 18 BRMIN 23 BRMIN (12/12/13 12:01 PM) (12/12/13 7:41 AM) *HI* (12/12/13 7:20 AM) Peripheral Pulse Rate [60-100 86 bpm 77 bpm 94 bpm bpm] (12/12/13 12:01 PM) (12/12/13 7:41 AM) (12/12/13 4:00 AM) Weight 76.364 kg 67.273 kg (12/11/13 3:33 PM) (12/08/13 9:50 AM) Body Mass Index 29.82 m2 27.13 m2 (12/11/13 3:33 PM) (12/08/13 9:50 AM) Problem List Condition Effective Dates Status Health [...] sulfa drugs Active sulfa drugs Active Medications albuterol 0.083% inhalation solution 2.49 mg, 3 mL, Route: NEB, Drug form: SOLN, RQ4H, Dosing Weight 67.273, kg, Start date: 12/11/13 15:00:00, Duration: 30 day, Stop date: 01/10/14 11:00:00 Notes: SEE RT DOCUMENTATION (Same as: Carey) Start Date: 12/11/13 Stop Date: 12/12/13 Status: Discontinuedatropine 0.5 mg, 5 mL, Route: IVP, Drug form: INJ, PRN, PRN Bradycardia, Start date: 03/19 15:50:00, Duration: 30 day, Stop date: 01/10/14 15:49:00 Start Date: 12/11/13 Stop Date: 12/12/13 Status: DiscontinuedCarafate 1 gm, 10 mL, Route: PO, Drug form: SUSP, QID-Before Meals, Dosing Weight 76.364 , kg, Start date: 12/11/13 16:30:00, Stop date: 01/10/14 11:30:00 Notes: Enteral feeds may interfere with the absorption of this medication. Shake well. Take 1 hr before or 2 hrs after antacids, dairy pdt, minerals & meals. (Same As: Carafate) Start Date: 12/11/13 Stop Date: 12/12/13 Status: DiscontinuedCarafate 1 g oral tablet 1 gm=1 tab, PO, QID-Before Meals, # 120 tab, 0 Refill(s) Start Date: 12/08/13 Status: Orderedchlorhexidine topical 0.12% liquid 15 ml, Route: S&SPIT, Q12H, Drug form: LIQ, Start date: 12/11/13 21:00:00, Duration: 2 week, Stop date: 12/25/13 9:00:00 Notes: (Same As: Peridex) Start Date: 12/11/13 Stop Date: 12/12/13 Status: DiscontinuedDilaudid 0.5 mg, Route: IVP, ONCE, Dosing Weight 76.364, kg, Start date: 12/11/13 14:06: 00, Stop date: 12/11/13 14:06:00 Start Date: 12/11/13 Stop Date: 12/11/13 Status: DiscontinuedDilaudid 0.5 mg, Route: IVP, ONCE, Dosing Weight 76.364, kg, Start date: 12/11/13 14:12: 00, Stop date: 12/11/13 14:12:00 Start Date: 12/11/13 Stop Date: 12/11/13 Status: DiscontinuedDilaudid 0.5 mg, Route: IVP, ONCE, Dosing Weight 76.364, kg, Start date: 12/11/13 18:57: 00, Stop date: 12/11/13 18:57:00 Start Date: 12/11/13 Stop Date: 12/11/13 Status: CompletedDilaudid 0.5 mg, Route: IVP, ONCE, Dosing Weight 76.364, kg, Start date: 12/11/13 18:57: 00, Stop date: 12/11/13 18:57:00 Start Date: 12/11/13 Stop Date: 12/11/13 Status: Completeddocusate 100 mg, 1 cap, Route: PO, Drug form: CAP, BID, Dosing Weight 67.273, kg, PRN Constipation, Start date: 12/11/13 13:36:00, Duration: 30 day, Stop date: 13:35:00 Notes: (Same as: Colace) (Do Not Crush) Start Date: 12/11/13 Stop Date: 12/12/13 Status: Discontinuedheparin 5,000 unit, 1 mL, Route: SUB-Q, Drug form: INJ, Q12H, Dosing Weight 67.273, kg, Start date: 12/12/1419:00:00, Duration: 30 day, Stop date: 01/10/14 9:00:00 Notes: porcine heparin Start Date: 12/11/13 Stop Date: 12/12/13 Status: Discontinuedheparin 5,000 unit, Route: SUB-Q, ONCE, Dosing Weight 67.273, kg, Start date: 12/11/13 9 :40:00, Stop date: 12/11/13 9:40:00 Start Date: 12/11/13 Stop Date: 12/11/13 Status: Completedibuprofen PO, PRN, 0 Refill(s) Start Date: 12/08/13 Stop Date: 12/12/13 Status: DiscontinuedLactated Ringers Injection IV 1000 mL 1,000 mL, Rate: 25 ml/hr, Infuse over: 40 hr, Route: IV, Dosing Weight 67.273 kg , Total Volume: 1,000, Start date: 12/11/13 9:23:00, Duration: 30 day, Stop date : 01/10/14 9:22:00 Start Date: 12/11/13 Stop Date: 12/11/13 Status: DiscontinuedLevaquin 500 mg, 100 mL, Route: IVPB, Drug form: INJ, ONCE, Dosing Weight 67.273, kg, Start date: 12/11/13 9:40:00, Stop date: 12/11/13 9:40:00 Notes: (Same as:Levaquin) Start Date: 12/11/13 Stop Date: 12/11/13 Status: Completedlevofloxacin 500 mg, 100 mL, Route: IVPB, Drug form: INJ, Daily, Dosing Weight 67.273, kg, Start date: 12/12/13 11:00:00, Duration: 30 day, Stop date: 01/10/14 11:00:00 Notes: (Same as:Levaquin) Start Date: 12/12/13 Stop Date: 12/12/13 Status: Discontinuedlisinopril 10 mg, 1 tab, Route: PO, Drug form: TAB, Daily, Dosing Weight 76.364, kg, Start date: 12/12/13 9:00:00, Duration: 30 day, Stop date: 01/10/14 9:00:00 Notes: (Same as: Prinivil, Zestril) Start Date: 12/12/13 Stop Date: 12/12/13 Status: Discontinuedmorphine Sulfate 4 mg, 2 mL, Route: IVP, Drug form: INJ, Q4H, Dosing Weight 67.273, kg, PRN Pain Score 1-5, Start date: 12/11/13 13:36:00, Duration: 30 day, Stop date: 01/10/14 13:35:00 Notes: (Same as:MORPhine Sulfate) Start Date: 12/11/13 Stop Date: 12/12/13 Status: Discontinuedmultivitamin 1 tab, PO, Daily, 0 Refill(s) Start Date: 12/08/13 Status: Orderednitroglycerin 0.4 mg, 1 tab, Route: SL, Drug form: TAB, Q5Min, Dosing Weight 67.273, kg, PRN Chest Pain, Start date: 12/11/13 13:36:00, Duration: 30 day, Stop date: 13:35:00 Notes: (Same as:Nitroquick, Nitrostat)"Do Not Crush" Sublingual tablet Start Date: 12/11/13 Stop Date: 12/12/13 Status: DiscontinuedPaxil 10 mg, 1 tab, Route: PO, Drug form: TAB, Daily, Dosing Weight 76.364, kg, Start date: 12/12/13 9:00:00, Duration: 30 day, Stop date: 01/10/14 9:00:00 Notes: (Same as: Paxil) Start Date: 12/12/13 Stop Date: 12/12/13 Status: DiscontinuedPlaquenil Sulfate 200 mg, 1 tab, Route: PO, Drug form: TAB, BID, Dosing Weight 76.364, kg, Start date: 12/11/13 17:00:00, Duration: 30 day, Stop date: 01/10/14 9:00:00 Notes: (Same as: Plaquenil) Start Date: 12/11/13 Stop Date: 12/12/13 Status: DiscontinuedProtonix 40 mg, 1 pkt, Route: PO, Drug form: GRAN/REC, Before Dinner, Dosing Weight 76.364, kg, Start date: 12/11/13 16:30:00, Stop date: 01/09/14 16:30:00 Notes: Same as: Protonix Mix in 5 mL apple juice or applesauce for oral & 10mL apple juice for NG tube Start Date: 12/11/13 Stop Date: 12/12/13 Status: DiscontinuedProtonix 40 mg oral enteric coated tablet 40 mg=1 tab, PO, Daily, # 30 tab, 0 Refill(s) Start Date: 12/08/13 Status: OrderedSodium Chloride 0.9% IV 1,000 mL 1,000 mL, Rate: 75 ml/hr, Infuse over: 13.3 hr, Route: IV, Dosing Weight 67.273 kg, Total Volume: 1,000, Start date: 12/11/13 13:36:00, Duration: 30 day, Stop date: 01/10/14 13:35:00 Start Date: 12/11/13 Stop Date: 12/12/13 Status: DiscontinuedTylenol 650 mg, 20.3 mL, Route: PO, Drug form: LIQ, Q6H, Dosing Weight 76.364, kg, PRN Pain, Start date: 12/12/13 6:16:00, Stop date: 01/11/14 6:15:00 Notes: Max lnjeekgshmcpl=8826fp/day (4 gm/day). (Same as: Tylenol) Start Date: 12/12/13 Stop Date: 12/12/13 Status: DiscontinuedZofran 4 mg, 2 mL, Route: IV, Drug form: INJ, Q6H, Dosing Weight 76.364, kg, PRN Nausea , Start date: 12/11/13 16:26:00, Duration: 30 day, Stop date: 01/10/14 16:25:00 Notes: (Same as: Zofran) Start Date: 12/11/13 Stop Date: 12/12/13 Status: Discontinued Results BLOOD BANK RESULTS Most recent to oldest [Reference Range]: 1 2 3 ABO/Rh O POS O POS *Unknown* *Unknown* (12/11/13 2:07 PM) (12/08/13 11:00 AM) Antibody Scrn Negative Negative (12/11/13 2:07 PM) (12/08/13 11:00 AM) RBC product Product available Product available (12/11/13 1:43 PM) (12/11/13 6:00 AM) ELECTROLYTES Most recent to oldest 1 2 3 [Reference Range]: Sodium Lvl [135-145 mEq/L] 141 mEq/L 139 mEq/L 136 mEq/L (12/12/13 4:00 AM) (12/11/13 2:04 PM) (12/08/13 11:00 AM) Potassium Lvl [3.5-5.1 mEq/L] 4.3 mEq/L 4.0 mEq/L 4.1 mEq/L (12/12/13 4:00 AM) (12/11/13 2:04 PM) (12/08/13 11:00 AM) Chloride Lvl [95-109 mEq/L] 110 mEq/L 110 mEq/L 104 mEq/L *HI* *HI* (12/08/13 11:00 AM) (12/12/13 4:00 AM) (12/11/13 2:04 PM) CO2 [24-32 mEq/L] 25 mEq/L 20 mEq/L 26 mEq/L (12/12/13 4:00 AM) *LOW* (12/08/13 11:00 AM) (12/11/13 2:04 PM) AGAP [10.0-20.0 mEq/L] 10.3 mEq/L 13.0 mEq/L 10.1 mEq/L (12/12/13 4:00 AM) (12/11/13 2:04 PM) (12/08/13 11:00 AM) CHEM PANEL Most recent to oldest 1 2 3 [Reference Range]: Creatinine Lvl [0.5-1.4 0.9 mg/dL 0.8 mg/dL 0.9 mg/dL mg/dL] (12/12/13 4:00 AM) (12/11/13 2:04 PM) (12/08/13 11:00 AM) eGFR 65 mL/min/1.73m2 1 75 mL/min/1.73m2 2 65 mL/min/1.73m2 3 *NA* *NA* *NA* (12/12/13 4:00 AM) (12/11/13 2:04 PM) (12/08/13 11:00 AM) BUN [7-22 mg/dL] 14 mg/dL 15 mg/dL 21 mg/dL (12/12/13 4:00 AM) (12/11/13 2:04 PM) (12/08/13 11:00 AM) B/C Ratio [6-25] 16 19 23 (12/12/13 4:00 AM) (12/11/13 2:04 PM) (12/08/13 11:00 AM) Glucose Lvl [70-99 mg/dL] 112 mg/dL 4 178 mg/dL 5 85 mg/dL 6 *HI* *HI* (12/08/13 11:00 AM) (12/12/13 4:00 AM) (12/11/13 2:04 PM) Total Protein [6.4-8.4 g/dL] 5.3 g/dL 5.4 g/dL 6.8 g/dL *LOW* *LOW* (12/08/13 11:00 AM) (12/12/13 4:00 AM) (12/11/13 2:04 PM) Albumin Lvl [3.5-5.0 g/dL] 2.8 g/dL 2.8 g/dL 3.8 g/dL *LOW* *LOW* (12/08/13 11:00 AM) (12/12/13 4:00 AM) (12/11/13 2:04 PM) Globulin [2.0-4.0 g/dL] 2.5 g/dL 2.6 g/dL 3.0 g/dL (12/12/13 4:00 AM) (12/11/13 2:04 PM) (12/08/13 11:00 AM) A/G Ratio [0.7-1.6] 1.1 1.1 1.3 (12/12/13 4:00 AM) (12/11/13 2:04 PM) (12/08/13 11:00 AM) Calcium Lvl [8.5-10.5 mg/dL] 7.5 mg/dL 7.5 mg/dL 8.5 mg/dL *LOW* *LOW* (12/08/13 11:00 AM) (12/12/13 4:00 AM) (12/11/13 2:04 PM) ALT [0-65 unit/L] 220 unit/L 117 unit/L 22 unit/L *HI* *HI* (12/08/13 11:00 AM) (12/12/13 4:00 AM) (12/11/13 2:04 PM) AST [0-37 unit/L] 227 unit/L 130 unit/L 19 unit/L *HI* *HI* (12/08/13 11:00 AM) (12/12/13 4:00 AM) (12/11/13 2:04 PM) Alk Phos [39-136 unit/L] 46 unit/L 50 unit/L 64 unit/L (12/12/13 4:00 AM) (12/11/13 2:04 PM) (12/08/13 11:00 AM) Bili Total [0.2-1.3 mg/dL] 0.3 mg/dL 0.2 mg/dL 0.5 mg/dL (12/12/13 4:00 AM) (12/11/13 2:04 PM) (12/08/13 11:00 AM) 1Result Comment: The eGFR is calculated using the CKD-EPI formula. In most young , healthy individualsthe eGFR will be >90 mL/min/1.73m2. The eGFR declines with age. An eGFR of 60-89 may be normal in some populations, particularly the elderly, for whom the CKD-EPI formula has not been extensively validated. Use of the eGFR is not recommended in the following populations: Individuals with unstable creatinine concentrations, including patients and those with serious co-morbid conditions. Patients with extremes in muscle mass or diet. The data above are obtained from the National Kid[employer] Disease Education Program ( NK[employer]) which additionally recommends that when the eGFR is used in patients with extremes of body mass index for purposesof drug dosing, the eGFR should be multiplied by the estimated BMI.2Result Comment: The eGFR is calculated using the CKD-EPI formula. In most young, healthy individualsthe eGFR will be >90 mL/ min/1.73m2. The eGFR declines with age. An eGFR of 60-89 may be normal in some populations, particularly the elderly, for whom the CKD-EPI formula has not been extensively validated. Use of the eGFR is not recommended in the following populations: Individuals with unstable creatinine concentrations, including patients and those with serious co-morbid conditions. Patients with extremes in muscle mass or diet. The data above are obtained from the National Kid[employer] Disease Education Program ( [employer]) which additionally recommends that when the eGFR is used in patients with extremes of body mass index for purposesof drug dosing, the eGFR should be multiplied by the estimated BMI.3Result Comment: The eGFR is calculated using the CKD-EPI formula. In most young, healthy individualsthe eGFR will be >90 mL/ min/1.73m2. The eGFR declines with age. An eGFR of 60-89 may be normal in some populations, particularly the elderly, for whom the CKD-EPI formula has not been extensively validated. Use of the eGFR is not recommended in the following populations: Individuals with unstable creatinine concentrations, including patients and those with serious co-morbid conditions. Patients with extremes in muscle mass or diet. The data above are obtained from the National Kid[employer] Disease Education Program ( NKDEP) which additionally recommends that when the eGFR is used in patients with extremes of body mass index for purposesof drug dosing, the eGFR should be multiplied by the estimated BMI.4Interpretive Data: Adult reference range values reflect the clinical guidelines of the [place] [employer].5Interpretive Data: Adult reference range values reflect the clinical guidelines of the [place] [employer].6Interpretive Data: Adult reference range values reflect the clinical guidelines of the [place] [employer].URINE AND STOOL Most recent to oldest [Reference Range]: 1 2 3 UA Turbidity [Clear] Slight *ABN* (12/08/13 10:30 AM) UA Color [Yellow] Yellow *NA* (12/08/13 10:30 AM) UA pH [5.0-8.0] 5.0 (12/08/13 10:30 AM) UA Spec Grav [<=1.030] 1.013 (12/08/13 10:30 AM) UA Glucose [Negative mg/dL] Negative mg/dL *NA* (12/08/13 10:30 AM) UA Blood [Negative] Negative (12/08/13 10:30 AM) UA Ketones [Negative mg/dL] Negative mg/dL *NA* (12/08/13 10:30 AM) UA Protein [Negative mg/dL] Negative mg/dL (12/08/13 10:30 AM) UA Urobilinogen [0.1-1.0 mg/dL] <=1.0 mg/dL *NA* (12/08/13 10:30 AM) UA Bili [Negative] Negative *NA* (12/08/13 10:30 AM) UA Leuk Est [Negative] Trace *ABN* (12/08/13 10:30 AM) UA Nitrite [Negative] Positive *ABN* (12/08/13 10:30 AM) UA WBC [0-5 /HPF] 5 /HPF (12/08/13 10:30 AM) UA RBC [0-2 /HPF] <1 /HPF (12/08/13 10:30 AM) UA Bacteria [None Seen /HPF] Occasional /HPF *NA* (12/08/13 10:30 AM) UA Sq Epi None Seen *NA* (12/08/13 10:30 AM) HEMATOLOGY Most recent to oldest 1 2 3 [Reference Range]: WBC [3.7-10.4 K/CMM] 13.8 K/CMM 9.5 K/CMM *HI* (12/08/13 11:00 AM) (12/12/13 4:00 AM) RBC [4.20-5.40 M/CMM] 3.63 M/CMM 4.45 M/CMM *LOW* (12/08/13 11:00 AM) (12/12/13 4:00 AM) Hgb [12.0-16.0 g/dL] 9.9 g/dL 10.0 g/dL 11.9 g/dL *LOW* *LOW* *LOW* (12/12/13 4:00 AM) (12/11/13 2:04 PM) (12/08/13 11:00 AM) Hct [36.0-48.0 %] 29.7 % 30.7 % 36.6 % *LOW* *LOW* (12/08/13 11:00 AM) (12/12/13 4:00 AM) (12/11/13 2:04 PM) MCV [81.0-99.0 fL] 81.9 fL 82.2 fL (12/12/13 4:00 AM) (12/08/13 11:00 AM) MCH [27.0-31.0 pg] 27.3 pg 26.6 pg (12/12/13 4:00 AM) *LOW* (12/08/13 11:00 AM) MCHC [32.0-36.0 g/dL] 33.4 g/dL 32.4 g/dL (12/12/13 4:00 AM) (12/08/13 11:00 AM) RDW [11.5-14.5 %] 23.0 % 23.4 % *HI* *HI* (12/12/13 4:00 AM) (12/08/13 11:00 AM) Platelet [133-450 K/CMM] 230 K/CMM 260 K/CMM (12/12/13 4:00 AM) (12/08/13 11:00 AM) MPV [7.4-10.4 fL] 9.5 fL 9.9 fL (12/12/13 4:00 AM) (12/08/13 11:00 AM) Segs [45.0-75.0 %] 77.0 % 52.7 % *HI* (12/08/13 11:00 AM) (12/12/13 4:00 AM) Lymphocytes [20.0-40.0 %] 16.7 % 41.1 % *LOW* *HI* (12/12/13 4:00 AM) (12/08/13 11:00 AM) Monocytes [2.0-12.0 %] 6.1 % 4.9 % (12/12/13 4:00 AM) (12/08/13 11:00 AM) Eosinophils [0.0-4.0 %] 0.0 % 0.8 % (12/12/13 4:00 AM) (12/08/13 11:00 AM) Basophils [0.0-1.0 %] 0.2 % 0.5 % (12/12/13 4:00 AM) (12/08/13 11:00 AM) Segs-Bands # [1.5-8.1 K/CMM] 10.6 K/CMM 5.0 K/CMM *HI* (12/08/13 11:00 AM) (12/12/13 4:00 AM) Lymphocytes # [1.0-5.5 K/CMM] 2.3 K/CMM 3.9 K/CMM (12/12/13 4:00 AM) (12/08/13 11:00 AM) Monocytes # [0.0-0.8 K/CMM] 0.8 K/CMM 0.5 K/CMM (12/12/13 4:00 AM) (12/08/13 11:00 AM) Eosinophils # [0.0-0.5 K/CMM] 0.0 K/CMM 0.1 K/CMM (12/12/13 4:00 AM) (12/08/13 11:00 AM) Basophils # [0.0-0.2 K/CMM] 0.0 K/CMM 0.0 K/CMM (12/12/13 4:00 AM) (12/08/13 11:00 AM) Anisocyte [None Seen] 1+ 1+ *ABN* *ABN* (12/12/13 4:00 AM) (12/08/13 11:00 AM) PT [12.0-14.7 seconds] 12.3 seconds (12/08/13 11:00 AM) INR [0.85-1.17] 0.92 7 (12/08/13 11:00 AM) PTT [22.9-35.8 seconds] 24.5 seconds 8 (12/08/13 11:00 AM) 7Interpretive Data: RECOMMENDED RANGES FOR PROTIME INR: 2.0-3.0 for most medical and surgical thromboembolic states. 2.5-3.5 for artificial heart valves and recurrent embolism. INR SHOULD BE USED ONLY FOR PATIENTS ON STABLE ANTICOAGULANT THERAPY.8Interpretive Data: Heparin Therapeutic Range: 57 - 92 Seconds Medications Administered During Your Visit No data available for this section Immunizations No data available for this section Procedures Procedure Type Body Site Date of Procedure Related Diagnosis Wrist reconstruction Social History Social History Type Response Substance Abuse 1 Alcohol 2 Smoking Status Current every day smoker, Type: Cigarettes, Exposure to Tobacco Smoke Lives with someone who smokes, Cigarette Smoking Last 365 Days Yes, Reg Smoking Cessation Counseling No [id number] Assessment and Plan Extracted from: Title: Clinical Document Author: Jj Partida Date: 12/12/13 Progress Daily [facility] Completed: Dec, 14:10 by Jj Partida DO RM: 333 - 1P, SE MYAH PAGAN 68y (: 1945) F Attending: Jj Partida DO Service: Internal Medicine Reason for Admission: 530.81/553.3/786.20/81639 Working DRG: Stomach, esophageal & duodenal proc w/o CC/NURSING HOME Code status: None Specified=FULL CODE Current diet: Isolation: None Documented Allergies: sulfa drugs, codeine(Allergy to sulfa drugs) SUBJECTIVE Patient seen and examined. Events noted overnight. Labs/Images reviewed tolerating diet OBJECTIVE Labs (Last four charted values) WBC H 13.8 (DEC 12) 9.5 (DEC 08) Hgb L 9.9 (DEC 12) L 10.0 (DEC 11) L 11.9 (DEC 08) Hct L 29.7 (DEC 12) L 30.7 (DEC 11) 36.6 (DEC 08) Plt 230 (DEC 12) 260 (DEC 08) Na 141 (DEC 12) 139 (DEC 11) 136 (DEC 08) K 4.3 (DEC 12) 4.0 (DEC 11) 4.1 (DEC 08) CO2 25 (DEC 12) L 20 (DEC 11) 26 (DEC 08) Cl H 110 (DEC 12) H 110 (DEC 11) 104 (DEC 08) Cr 0.9 (DEC 12) 0.8 (DEC 11) 0.9 (DEC 08) BUN 14 (DEC 12) 15 (DEC 11) 21 (DEC 08) Glucose Random H 112 (DEC 08) H 178 (DEC 11) 85 (DEC 08) Ca L 7.5 (DEC 12) L 7.5 (DEC 11) 8.5 (DEC 08) PT 12.3 (DEC 08) INR 0.92 (DEC 08) PTT 24.5 (DEC 08) ASSESSMENT & EXAM Gen: NAD, Alert, Awake HEENT: NC/AT, PERRLA, oral area clear and moist Neck: No LAD, No JVD, trachea midline Chest: CTAB, no c/w/r CV: RRR, S1, S2 GI: +BS, S, NT, ND, No organomegaly Ext: no c/c/e Neuro: AOx3, no gross deficits noted Skin: No notable rashes PLAN & TREATMENT toleratign diet doing better ok to d/c home f/u with Dr. Escobar in 1-2 weeks DIAGNOSES & PROBLEMS 1. Hiatal hernia, status post laparoscopic reduction of type 4 hiatal hernia with a diaphragmatic hernia repair for admission Toupet fundoplication. 2. Rheumatoid arthritis. 3. Osteoporosis. 4. Depression. Ready for Discharge (Yes/No)? Monzon still necessary (Yes/No): Line still necessary (Yes/No): 24hr Labs 12/12 0400 Sodium Lvl 141 Potassium Lvl 4.3 Chloride Lvl 110 H CO2 25 AGAP 10.3 Glucose Lvl 112 H Creatinine Lvl 0.9 BUN 14 B/C Ratio 16 Total Protein 5.3 L Albumin Lvl 2.8 L Globulin 2.5 A/G Ratio 1.1 Calcium Lvl 7.5 L ALT 220 H AST 227 H Alk Phos 46 Bili Total 0.3 eGFR 65 WBC 13.8 H RBC 3.63 L Hgb 9.9 L Hct 29.7 L MCV 81.9 MCH 27.3 MCHC 33.4 RDW 23.0 H Platelet 230 MPV 9.5 Segs 77.0 H Monocytes 6.1 Lymphocytes 16.7 L Eosinophils 0.0 Basophils 0.2 Segs-Bands # 10.6 H Lymphocytes # 2.3 Monocytes # 0.8 Eosinophils # 0.0 Basophils # 0.0 Anisocyte 1+ 12/11 1407 ABO/Rh O POS Antibody Scrn Negative XM EXM Interp Computer XM OK XM EXM Interp Computer XM OK 12/11 1404 Sodium Lvl 139 Potassium Lvl 4.0 Chloride Lvl 110 H CO2 20 L AGAP 13.0 Glucose Lvl 178 H Creatinine Lvl 0.8 BUN 15 B/C Ratio 19 Total Protein 5.4 L Albumin Lvl 2.8 L Globulin 2.6 A/G Ratio 1.1 Calcium Lvl 7.5 L ALT 117 H AST 130 H Alk Phos 50 Bili Total 0.2 eGFR 75 Hgb 10.0 L Hct 30.7 L 12/11 1343 RBC product Product available Vitals Tmp(F) Pulse BP RR SpO2 FIO2 12/12 12:01 98.1 86 136/77 18 95 --- 12/12 07:41 98.1 77 117/72 18 94 --- 12/12 07:20 ---- --- ----- 23 95 21% 12/12 04:00 99.0 94 115/71 14 91 --- 12/12 00:00 99.1 83 114/56 14 93 --- 24 Hr Tmax: 99.1F (37.28c) at 12/12 00:00 Vital Signs are the last 5 in the past 48 hours. Date Wt(kg) Wt(lb) Ht(cm) Ht(in) Method 12/11 76.36 168.00 Measured 12/08 (initial) 67.27 148.00 157.48 62.00 Stated I&O Record In Out Bal 12/12 24hr Tot 110 0 110 12/11 24hr Tot 3075 775 2300 Medications (20) Active Scheduled Meds (9): 12/12/13 PARoxetine (Paxil) 10 mg PO Daily 12/11/13 albuterol (albuterol 0.083% inhalation solution) 2.49 mg NEB RQ4H 12/11/13 chlorhexidine topical (chlorhexidine topical 0.12% liquid) 15 ml S& SPIT Q12H 12/11/13 heparin 5,000 unit SUB-Q Q12H 12/11/13 hydroxychloroquine (Plaquenil Sulfate) 200 mg PO BID 12/12/13 levofloxacin 500 mg IVPB Daily 100 ml/hr 12/12/13 lisinopril 10 mg PO Daily 12/11/13 pantoprazole (Protonix) 40 mg PO Before Dinner 12/11/13 sucralfate (Carafate) 1 gm PO QID-Before Meals Unscheduled Meds: None PRN Meds (5): 12/12/13 acetaminophen (Tylenol) 650 mg PO Q6H 12/11/13 atropine 0.5 mg IVP PRN 12/11/13 docusate 100 mg PO BID 12/11/13 nitroglycerin 0.4 mg SL Q5Min 12/11/13 ondansetron (Zofran) 4 mg IV Q6H One Time Meds (6): 12/11/13 (Completed) heparin 5,000 unit SUB-Q ONCE 12/11/13 (Discontinued) hydromorphone (Dilaudid) 0.5 mg IVP ONCE 12/11/13 (Discontinued) hydromorphone (Dilaudid) 0.5 mg IVP ONCE 12/11/13 (Completed) hydromorphone (Dilaudid) 0.5 mg IVP ONCE 12/11/13 (Completed) hydromorphone (Dilaudid) 0.5 mg IVP ONCE 12/11/13 (Completed) levofloxacin (Levaquin) 500 mg IVPB ONCE 100 ml/hr Continuous Infusions: None Extracted from: Title: Clinical Document Author: Gina Escobar Date: 12/11/13 PATIENT NAME: MYAH JORDAN DATE OF OPERATION/PROCEDURE: 12/11/2013 PREOPERATIVE DIAGNOSIS: Intrathoracic stomach POSTOPERATIVE DIAGNOSIS: Type IV hiatal hernia with intrathoracic and herniated omentum in the chest PROCEDURES PERFORMED: 1. Laparosopic repair of Type IV hiatal hernia with intrathoracic stomach and herniated omentum in the chest 2. Laparoscopic repair of diaphragmatic hiatal hernia with mesh. 3. Laparoscopic esophagogastric Toupet fundoplasty. 4. Transoral esophagogastroscopy to assess the repair and the presence of leak. SURGEON: Gina Escobar M.D. [employer] INSTRUCTOR: Mary Kay Hernandez INDICATIONS FOR PROCEDURE: Patient is a 68-year-old female with history of anemia, dysphagia, regurgitaion and shortness heartburn. On the video esophagram she was found to have an intrathoracic stomach and mild esophageal dysmo tility. The upper endopscupy showed an intrathoracic stomach. Our plan was to perform a laparoscopic versus open reduction of intrathoracic stomach, repair of diaphragmatic hiatal hernia with mesh, Toupet fundoplication and an upper endoscopy to assess the fundop lication and presence of leak. The risks of the procedure including infection , bleeding, risk of injury to intraabdominal structures such as esophagus, stomach and spleen, risk of intraoperative pneumo thorax requiring chest tube placement, postoperative transient dysphagia, increased flatulence, recurrent herniation and were all explained to the patient. She understood and agreed to proceed. PROCEDURE: Patient was brought to the operating room and was placed on the operating table in the supine position. After undergoing general endotracheal anesthesia, the patient's legs were spread apart and placed in holders. The skin of anterior abdomen was then prepped and draped in the usual fashion. The operating table was then placed in reverse Trendelenburg position. A small incision was made just to the left of the midline, one-third of the distance between the umbilicus and the xiphoid. Using the 11-mm port and zero- degree camera, entrance to the abdominal cavity was performed under direct vision. Pneumoperitoneum was obtained. Under laparoscopic control, a 12 mm universal dissection port was placed in the left upper quadrant, an 11 mm retraction port was lula tony in the left flank at the level of the umbilicus, a 5-mm dissection port was placed in the right upper quadrant, and a 5-mm port was placed just below the xiphoid for liver retraction. The liver ret ractor was inserted and the liver was retracted superiorly and to the right. Patient was found to have an intrathoracic stomach and the 3/4 of the stomach and omentum were into the chest. We retracted the stomach inferiorly and the hernia sac from the right bernice. The dissection continued into the mediastinum to obtain an adequate esophageal length. Once we identified the right and left bernice a Alfred was placed around the esophagus and further mobilization of the e sophagus was obtained. There were severe adhesions of the stomach, inside the chest to the aorta and the pleura which were very gently taken down without any injury to the pleura or the aorta. Full mob ilization of the esophagus was performed. We had three cm intra-abdominal esophageal length. We then mobilized the fundus of the stomach and divided the short gastric vessels along the greater curvatur e on the superior one-third of the stomach. An upper endoscopy was performed and there was no evidence of esophageal perforation. We then closed the crural opening using four 0- Ethibond stitches in a figure- of-eight manner, using a Tie- Knot device. The crural closure continued up to the level of the diaphragmatic crux with careful attention not to strangulate the esophagus. We then placed a stitch 6-cm from the GE junction and 2 cm from the greater curvature on the posterior wall of the stomach. This stitch was carried out superiorly and was brought behind the esophagus t o the other side of the esophagus to perform the fundoplication. We then performed a Toupet fundoplication by placing 3 stitches on each side between the esophageal wall on the stomach using 2-0 silk s titches and a tie knot device. The stomach was anchored at the right and left side of the esophagus constructing the posterior 270 degree fundoplication. No bougie was inserted. We then performed an upper endoscopy. Entrance to the stomach was achieved directly without any difficulty and the retroflexed view of the gastroesophageal junction showed a well placed fundoplication. There was no evidence of leak. We then placed a 4 x 6 cm piece of tailored Vicryl mesh over the crural closure and Tisseel was applied to reinforce the closure. The patient tolerated the procedure well, was extubated and transferred to the postanesthesia recovery room without any complications. I was present for the entire procedure and performed the procedure from the beginning to the end.
--- OUTSIDE RECORDS SUMMARY | 2018-07-28 23:07 | XMS REPORT | Summary of Care ---
:1945 Author Encounter HQ Blank(LUI) [id number] Date(s): 07/18/14 - 07/18/14 [facility] [place] [address] [address] Discharge Disposition: Home Physician Attending: Gina Escobar MD Physician_Referring: Gina Escobar MD Reason for Visit GERD Problem List Condition Effective Dates Status Health [...] Status Current every day smoker, Type: Cigarettes, Lives with someone who smokes, Cigarette Smoking Last 365 Days Yes, Reg Smoking Cessation Counseling No [id number]
[2018-07-29] MEDS ORDERED: TETANUS & DIPHTHERIA TOX,ADULT 0.5 ML VIAL ONE (00:48)
[2018-07-29] MEDS ORDERED: LIDOCAINE 1% MPF 2 ML AMPULE ONE (01:02)
--- NOTE | 2018-07-29 01:25 | ER ---
Nurse's Notes [facility] Name: Poly Mei Age: 73 yrs Sex: Female : 1945 Arrival Date: 07/28/2018 Time: 23:07 Bed 28 Private MD: Diagnosis: Pain in right hip;Laceration without foreign body of scalp;Fall on same level from slipping, tripping and stumbling Presentation: 07/28 23:08 Presenting complaint: EMS states: they were toned out for report of pt having fallen bb receiving laceration to her right brow and skin tears to her right elbow pt also c/o pain to her right hip and knee and pain to her left wrist. Transition of care: patient was not received from another setting of care. Onset of symptoms was July 28, 2018. Risk Assessment: Do you want to hurt yourself or someone else? Patient reports no desire to harm self or others. Initial Sepsis Screen: Does the patient meet any 2 criteria? No. Patient's initial sepsis screen is negative. Does the patient have a suspected source of infection? No. Patient's initial sepsis screen is negative. Care prior to arrival: None. 23:08 Method Of Arrival: Ambulatory bb 23:08 Acuity: SUNSHINE 3 bb Historical: - Allergies: 23:12 Codeine; bb - Home Meds: 23:12 None [Active]; bb - PMHx: 23:12 Rheumatoid Arthritis; bb - PSHx: 23:12 right hip replacement; left wrist; bb - Immunization history:: Adult Immunizations unknown. - Social history:: Smoking status: unknown. - Ebola Screening: : No symptoms or risks identified at this time. Screenin:20 Abuse screen: Denies threats or abuse. Denies injuries from another. Nutritional rv screening: No deficits noted. Tuberculosis screening: No symptoms or risk factors identified. Fall Risk None identified. Assessment: 23:18 General: Appears in no apparent distress. comfortable, Behavior is calm, cooperative. rv Pain: Complains of pain in pelvis and right hip and right arm and right side of forehead. Neuro: Level of Consciousness is awake, alert, obeys commands, Oriented to person, place, time, situation. Cardiovascular: Capillary refill < 3 seconds. Respiratory: Airway is patent. GI: No signs and/or symptoms were reported involving the gastrointestinal system. : No signs and/or symptoms were reported regarding the genitourinary system. EENT: No signs and/or symptoms were reported regarding the EENT system. Derm: Wound noted right eye, outer upper lid; right arm, abrasions. Musculoskeletal: Reports pain in pelvis and right hip and right arm and right side of forehead. 07/29 00:49 Reassessment: Patient appears in no apparent distress at this time. Patient and/or rv family updated on plan of care and expected duration. Pain level reassessed. Patient is alert, oriented x 3, equal unlabored respirations, skin warm/dry/pink. awaiting CT scan result. Vital Signs: 07/28 23:12 Weight 53.07 kg (R); Height 5 ft. 2 in. (157.48 cm) (R); bb 23:17 BP 125 / 67; Pulse 69 MON; Resp 16 S; Temp 99.1(O); Pulse Ox 96% on R/A; rv 07/29 01:10 BP 128 / 68; Pulse 74; Resp 16; Pulse Ox 95% on R/A; rv 01:55 BP 114 / 72; Pulse 66; Resp 15; Pulse Ox 97% on R/A; rv 07/28 23:12 Body Mass Index 21.40 (53.07 kg, 157.48 cm) bb ED Course: 07/28 23:07 Patient arrived in ED. bb 23:09 [facility]C [facility]. kb 23:09 Dexter Jacobson MD is Attending Physician. kb 23:11 Triage completed. bb 23:12 Arm band placed on Patient placed in an exam room, on a stretcher, on pulse oximetry. bb 23:21 Patient has correct armband on for positive identification. Bed in low position. Call rv light in reach. Side rails up X 1. Adult w/ patient. Pulse ox on. NIBP on. 23:21 Maintain EMS IV. Dressing intact. Good blood return noted. Site clean \T\ dry. Gauge \T\ rv site: g22 right forearm. 23:47 CT Head C Spine In Process Unspecified. EDMS 23:54 Hip Right 2 View XRAY In Process Unspecified. EDMS 23:54 Pelvis XRAY In Process Unspecified. EDMS 23:56 X-ray completed. Portable x-ray completed in exam room. Patient tolerated procedure kw well. 11/23 01:11 Assist provider with laceration repair on right side of forehead that was 2.5 cm. or rv less using sutures. Set up tray. Performed by Heidi LANIER Dressed with 4X4s, Patient tolerated well. 01:55 IV discontinued, bleeding controlled, No redness/swelling at site. Pressure dressing rv applied. 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 Exp: rv 06/02/2020. Lot #: [id number]. } Route: IM; Site: left deltoid; 01:55 Follow up: Response: No adverse reaction rv Outcome: 01:24 Discharge ordered by . amanda 01:55 Discharged to home via wheelchair. rv 01:55 Condition: improved 01:55 Discharge instructions given to patient, Instructed on discharge instructions, follow up and referral plans. wound care, Demonstrated understanding of instructions, follow-up care, wound care. 01:56 Patient left the ED. rv Signatures: Dispatcher [employer] EDMS Heidi Bean FNP-C FNP-Ckb Ballard, Brenda, RN RN Taniya Mcgraw Ronaldo, RN RN rv
--- NOTE | 2018-07-29 01:25 | EDPHYS ---
Physician Documentation [facility] Name: Poyl Mei Age: 73 yrs Sex: Female : 1945 Arrival Date: 07/28/2018 Time: 23:07 Bed 28 Private MD: ED Physician Dexter Jacobson HPI: 07/28 23:14 This 73 yrs old Female presents to ER via Ambulatory with complaints of Fall kb Injury. 23:14 Details of fall: The patient fell from an upright position, while walking. Onset: The kb symptoms/episode began/occurred just prior to arrival. Associated injuries: The patient sustained injury to the head, laceration, 2 cm(s), of the right side of forehead, right arm, skin tear, right hip, painful injury. Severity of symptoms: At their worst the symptoms were moderate, in the emergency department the symptoms are unchanged. The patient has not experienced similar symptoms in the past. The patient has not recently seen a physician. Historical: - Allergies: 23:12 Codeine; bb - Home Meds: 23:12 None [Active]; bb - PMHx: 23:12 Rheumatoid Arthritis; bb - PSHx: 23:12 right hip replacement; left wrist; bb - Immunization history:: Adult Immunizations unknown. - Social history:: Smoking status: unknown. - Ebola Screening: : No symptoms or risks identified at this time. ROS: 23:14 Constitutional: Negative for fever, chills, and weight loss, Cardiovascular: Negative kb for chest pain, palpitations, and edema, Respiratory: Negative for shortness of breath, cough, wheezing, and pleuritic chest pain, Abdomen/GI: Negative for abdominal pain, nausea, vomiting, diarrhea, and constipation, Neuro: Negative for headache, weakness, numbness, tingling, and seizure. 23:14 MS/extremity: Positive for pain, of the right hip. 23:14 Skin: Positive for laceration(s), of the right arm and right side of forehead, skin tear. Exam: 07/29 00:51 Constitutional: This is a well developed, well nourished patient who is awake, alert, kb and in no acute distress. Head/Face: Normocephalic, atraumatic. ENT: Nares patent. No nasal discharge, no septal abnormalities noted. Tympanic membranes are normal and external auditory canals are clear. Oropharynx with no redness, swelling, or masses, exudates, or evidence of obstruction, uvula midline. Mucous membranes moist. Neck: Trachea midline, no thyromegaly or masses palpated, and no cervical lymphadenopathy. Supple, full range of motion without nuchal rigidity, or vertebral point tenderness. No Meningismus. Chest/axilla: Normal chest wall appearance and motion. Nontender with no deformity. No lesions are appreciated. Cardiovascular: Regular rate and rhythm with a normal S1 and S2. No gallops, murmurs, or rubs. Normal PMI, no JVD. No pulse deficits. Respiratory: Lungs have equal breath sounds bilaterally, clear to auscultation and percussion. No rales, rhonchi or wheezes noted. No increased work of breathing, no retractions or nasal flaring. Abdomen/GI: Soft, non-tender, with normal bowel sounds. No distension or tympany. No guarding or rebound. No evidence of tenderness throughout. Neuro: Awake and alert, GCS 15, oriented to person, place, time, and situation. Cranial nerves II-XII grossly intact. Motor strength 5/5 in all extremities. Sensory grossly intact. Cerebellar exam normal. Normal gait. Skin: injury, laceration(s), the wound is approximately 3 cm(s), of the right side of forehead, that can be described as clean, no foreign body, linear, without bleeding, skin tear to right upper extremity. 00:51 Musculoskeletal/extremity: Extremities: grossly normal except: noted in the right hip: kb pain, tenderness, ROM: intact in all extremities, Circulation is intact in all extremities. Sensation intact. Weight bearing: able to fully bear weight. Vital Signs: 07/28 23:12 Weight 53.07 kg (R); Height 5 ft. 2 in. (157.48 cm) (R); bb 23:17 BP 125 / 67; Pulse 69 MON; Resp 16 S; Temp 99.1(O); Pulse Ox 96% on R/A; rv 07/29 01:10 BP 128 / 68; Pulse 74; Resp 16; Pulse Ox 95% on R/A; rv 01:55 BP 114 / 72; Pulse 66; Resp 15; Pulse Ox 97% on R/A; rv 07/28 23:12 Body Mass Index 21.40 (53.07 kg, 157.48 cm) bb Laceration: 01:19 Wound Repair of 3cm ( 1.2in ) subcutaneous laceration to right side of forehead. Linear kb shaped.. Distal neuro/vascular/tendon intact. Anesthesia: Wound infiltrated with 2 mls of 1% lidocaine. Wound prep: Extensive cleansing with betadine by me, Wound irrigation with saline by me. Skin closed with 5-0 fast absorbing gut using interrupted sutures and sterile technique. Patient tolerated well. MDM: 07/28 23:09 Patient medically screened. kb 23:18 Data reviewed: vital signs, nurses notes. Data interpreted: Pulse oximetry: on room air kb is 99 %. Interpretation: normal. 07/29 01:20 Counseling: I had a detailed discussion with the patient and/or guardian regarding: the kb historical points, exam findings, and any diagnostic results supporting the discharge/admit diagnosis, radiology results, the need for outpatient follow up, a family practitioner, to return to the emergency department if symptoms worsen or persist or if there are any questions or concerns that arise at home. 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 Exp: rv 06/02/2020. Lot #: [id number]. } Route: IM; Site: left deltoid; 01:55 Follow up: Response: No adverse reaction rv Disposition: 03:01 Co-signature as Attending Physician, Dexter Jacobson MD. rn Disposition: 07/29/18 01:24 Discharged to Home. Impression: Pain in right hip, Laceration without foreign body of scalp, Fall on same level from slipping, tripping and stumbling. - Condition is Stable. - Discharge Instructions: Laceration Care, Adult, [id number], Fall Prevention in the Home, [id number], Head Injury, Adult, [id number]. - Medication Reconciliation Form, Thank You Letter, Antibiotic Education, Prescription Opioid Use form. - Follow up: Emergency Department; When: As needed; Reason: Worsening of condition. Follow up: Private Physician; When: 2 - 3 days; Reason: Recheck today's complaints, Continuance of care, Re-evaluation by your physician. Signatures: Dispatcher [employer] EDHeidi Guerra, JASPAL-C SOFTWARE ENGINEER KERNEL-Courteny Pace, RN RN Dexter Swift MD MD rn Vicente, Ronaldo, RN RN rv Corrections: (The following items were deleted from the chart) 01:56 01:24 07/29/2018 01:24 Discharged to Home. Impression: Pain in right hip; Laceration rv without foreign body of scalp; Fall on same level from slipping, tripping and stumbling. Condition is Stable. Discharge Instructions: Laceration Care, Adult, [id number], Fall Prevention in the Home, [id number]-[id number], Head Injury, Adult, [id number]-[id number]. Forms are Medication Reconciliation Form, Thank You Letter, Antibiotic Education, Prescription Opioid Use. Follow up: Emergency Department; When: As needed; Reason: Worsening of condition. Follow up: Private Physician; When: 2 - 3 days; Reason: Recheck today's complaints, Continuance of care, Re-evaluation by your physician. kb
--- NOTE | 2018-07-29 10:05 | RAD REPORT ---
EXAM DESCRIPTION: CT - [id number] - 07/29/2018 4:38 am CLINICAL HISTORY: Trauma, head and neck injury. PAIN COMPARISON: No comparisons TECHNIQUE: Axial 5 mm thick images of the head were obtained. Axial 2 mm thick images of the cervical spine were obtained with sagittal and coronal reconstruction images generated and reviewed. All CT scans are performed using dose optimization technique as appropriate and may include automated exposure control or mA/KV adjustment according to patient size. FINDINGS: CT HEAD WITHOUT CONTRAST: No acute hemorrhage, hydrocephalus or extra-axial collection is identified.No areas of brain edema or midline shift. The paranasal sinuses and mastoids are clear.The calvarium is intact. Small 15 mm lucent and scleroti c lesion in the left frontal calvarium is noted, nonspecific. CT CERVICAL SPINE WITHOUT CONTRAST: No fracture or subluxation.Moderate lower cervical degenerative changes.No prevertebral soft tissues swelling is identified. IMPRESSION: No acute intracranial or cervical spine findings.
--- NOTE | 2018-07-29 10:07 | RAD REPORT ---
EXAM DESCRIPTION: RAD - Pelvis - 07/28/2018 11:54 pm CLINICAL HISTORY: PAIN History of fall COMPARISON: No comparisons FINDINGS: Right total hip arthroplasty is noted. An acute fracture or dislocation is not seen. No ag gressive marrow lesion.
--- NOTE | 2018-07-29 10:07 | RAD REPORT ---
EXAM DESCRIPTION: RAD - Hip Right 2 View - 07/28/2018 11:54 pm CLINICAL HISTORY: PAIN History of fall COMPARISON: No comparisons FINDINGS: Right total hip arthroplasty is noted. No evidence of hardware loosening or infection. An acute fracture is not seen.
== END 2018-07-29 01:56 | disposition home or self-care (01) ==
LOC: ER 23:03
PROC: 0JQ10ZZ Repair Face Subcutaneous Tissue and Fascia, Open Approach (ICD-10-PCS; principal; 2018-07-29)
DX: S01.01XA Laceration without foreign body of scalp, initial encounter (principal); W01.0XXA Fall on same level from slipping, tripping and stumbling without subsequent striking against object, initial encounter; Y93.01 Activity, walking, marching and hiking; Y92.9 Unspecified place or not applicable; Z88.5 Allergy status to narcotic agent; Z23 Encounter for immunization
CPT/HCPCS: 12013; 70450; 72125; 72170; 73502; 90714; 99284; J2001